=== PATIENT | female | born 1960 | race American Indian/Alaskan Native ===

== ENCOUNTER 2017-02-02 00:38 | Emergency (ER) | payer BC, OTHER ==
[2017-02-02 00:47] VITALS: BP 130/66
[2017-02-02] MEDS ORDERED: Cephalexin 500 MG Cap PO ONE ×2 (01:01→01:06)
[2017-02-02] MEDS ORDERED: Acetaminophen/HYDROcodone 325-10 MG Tab PO ONE ×2 (01:02→01:06)
[2017-02-02] MEDS ORDERED: Acetaminophen/HYDROcodone 325-10 MG Tab ONE (01:06)
[2017-02-02] MEDS ORDERED: Cephalexin 500 MG Cap ONE (01:06)
--- NOTE | 2017-02-02 01:25 | EDM.PDOC ---
ED HPI GENERAL MEDICAL PROBLEM - General Chief Complaint: ENT Problem Stated Complaint: TOOTHACHE Time Seen by Provider: 02/02/17 00:50 - History of Present Illness INITIAL COMMENTS - FREE TEXT/NARRATIVE: c/o left upper molar pain that started after eating tonight, has had similar episodes over past month but have been relieved with tylenol or ibuprofen, has taken both tonight and pain still present, Feel anxious since pain made her cry it hurt so bad. Also chest tightness that started after crying. Feels tight and burning. Last saw dentist one month ago for cleaning. Left Upper Gums Pain Score (Numeric/FACES): 9 - Related Data Allergies Allergy/AdvReac Type Severity Reaction Status Date / Time No Known Allergies Allergy Verified 02/02/17 00:46 Home Meds: Home Meds . [No Known Home Meds] 02/02/17 [History] Past Medical History - Past Health History Medical/Surgical History: Denies Medical/Surgical History Social & Family History - Tobacco Use Smoking Status *Q: Never Smoker Second Hand Smoke Exposure: No - Recreational Drug Use Recreational Drug Use: No ED ROS ENT - Review of Systems Review Of Systems: See Below Constitutional: Denies: Fever HEENT: Reports: Dental Pain Respiratory: Reports: No Symptoms Cardiovascular: Reports: Chest Pain. Denies: Blood Pressure Problem, Lightheadedness, Orthopnea, Palpitations Endocrine: Reports: No Symptoms GI/Abdominal: Reports: No Symptoms : Reports: No Symptoms Musculoskeletal: Reports: No Symptoms Skin: Reports: No Symptoms Neurological: Reports: No Symptoms Psychiatric: Reports: Anxiety ED EXAM, ENT - Physical Exam Exam: See Below Exam Limited By: No Limitations General Appearance: Alert, Anxious, Moderate Distress (holding left upper cheek over 1st molar) Eye Exam: Bilateral Eye: EOMI Ears: Normal External Exam, Normal TMs Nose: Normal Inspection Mouth/Throat: Normal Gums, Other (multiple capped teeth. Left 1st molar, Silver cap. no gross swelling. tender lateral gum. ) Head: Atraumatic, Normocephalic Neck: Lymphadenopathy (L) Respiratory/Chest: No Respiratory Distress, Lungs Clear, Normal Breath Sounds Cardiovascular: Normal Peripheral Pulses, Regular Rate, Rhythm GI/Abdominal: Soft Extremities: Normal Inspection Psychiatric: Normal Affect, Anxious Skin: Warm, Dry, Intact, Normal Color Course - Vital Signs Last Recorded V/S: Last Vital Signs Temp 97.3 F 02/02/17 00:41 Pulse 66 02/02/17 00:41 Resp 18 02/02/17 00:41 BP 130/66 02/02/17 00:41 Pulse Ox 96 02/02/17 00:41 - Orders/Labs/Meds Meds: Medications Discontinued Medications Generic Name Dose Route Start Last Admin Trade Name Wayne PRN Reason Stop Dose Admin Hydrocodone Bitart/Acetaminophen 1 tab 02/02/17 01:02 02/02/17 01:14 [place] 325-10 Mg PO 02/02/17 01:03 1 tab ONETIME ONE Administration Hydrocodone Bitart/Acetaminophen Confirm 02/02/17 01:06 02/02/17 01:09 [place] 325-10 Mg Administered 02/02/17 01:07 Not Given Dose 1 tab .ROUTE .STK-MED ONE Cephalexin 500 mg 02/02/17 01:01 02/02/17 01:12 Keflex PO 02/02/17 01:02 500 mg ONETIME ONE Administration Cephalexin Confirm 02/02/17 01:06 02/02/17 01:09 Keflex Administered 02/02/17 01:07 Not Given Dose 500 mg .ROUTE .STK-MED ONE - Re-Assessments/Exams Free Text/Narrative Re-Assessment/Exam: 02/02/17 01:28 Declines any further evaluation of chest tightness, stating pain just from stress and crying. Departure - Departure Time of Disposition: 01:19 Disposition: Home, Self-Care 01 Condition: good Clinical Impression: Pain, dental - Discharge Information Forms: ED Department Discharge Additional Instructions: keflex 500mg one every 6 hours for one week hydrocodone 10/325 one every 6 hours as needed for sever pain telenol 650mg alternating with ibuprofen 600-800mg every 6 hours as needed for mild to moderate discomfort follow with dentist on Saturday avoid extreme temperature foods, and liquids. chew on opposite side.
== END 2017-02-02 01:26 | disposition home or self-care (01) ==
LOC: DL.ED 00:38
DX: K08.89 Other specified disorders of teeth and supporting structures (principal)
CPT/HCPCS: 99282; A9270

== ENCOUNTER 2022-03-03 07:31 | Emergency (ER) | payer BC, OTHER ==
[2022-03-03 07:51] VITALS: BP 129/92; PULSE 84
[2022-03-03] MEDS ORDERED: Sodium Chloride 0.9% 10 ML Syringe FLUSH PRN (08:07)
[2022-03-03] MEDS ORDERED: Ondansetron 4 MG/2 ML SDV IVPUSH ONE (08:09)
[2022-03-03] MEDS ORDERED: Sodium Chloride 0.9% 1,000 ML IV ONE (08:09)
[2022-03-03 08:54] LABS: CORONAVIRUS COVID-19 NAA NEGATIVE (NEGATIVE)
[2022-03-03 09:40] LABS: ANION GAP 10.6 mEq/L (7-13)
== END 2022-03-03 10:25 | disposition home or self-care (01) ==
LOC: DL.ED 07:31
DX: R42 Dizziness and giddiness (principal); R94.5 Abnormal results of liver function studies; F17.210 Nicotine dependence, cigarettes, uncomplicated; E66.9 Obesity, unspecified; Z68.41 Body mass index [BMI] 40.0-44.9, adult; Z20.822 Contact with and (suspected) exposure to COVID-19
CPT/HCPCS: 0240U; 36415; 70450; 80053; 83605; 83735; 85025; 85610; 86140; 96361; 96374; 96375; 99284-25; J2405; J3360; J3490; J7030

== ENCOUNTER 2022-05-04 05:29 | Day surgery (SDC) | payer BC, OTHER ==
[~2022-05-04 05:29] MED LIST: Sodium Chloride 0.9% 10 ML Syringe FLUSH SCH
[2022-05-04] MEDS ORDERED: fentaNYL 100 MCG/2 ML SDV IV ONE ×3 (05:30→06:34)
[2022-05-04] MEDS ORDERED: Midazolam 1 MG/ML 2 ML SDV IV ONE ×6 (05:30→06:48)
[2022-05-04] MEDS ORDERED: Dextrose 5%-0.45% NaCl 1,000 ML IV SCH (06:00)
[2022-05-04] MEDS ORDERED: Sodium Chloride 0.9% 10 ML Syringe FLUSH PRN (06:00)
[2022-05-04] MEDS ORDERED: Midazolam 1 MG/ML 2 ML SDV ONE (06:14)
[2022-05-04] MEDS ORDERED: fentaNYL 100 MCG/2 ML SDV ONE (06:14)
[2022-05-04 09:34] VITALS: BP 132/76; PULSE 66
== END 2022-05-04 09:00 | disposition home or self-care (01) ==
LOC: DL.ENDO 05:29
PROVIDERS: ATTEND Internal Medicine Gastroenterology
DX: K62.5 Hemorrhage of anus and rectum (principal); K64.8 Other hemorrhoids; F17.210 Nicotine dependence, cigarettes, uncomplicated; E66.09 Other obesity due to excess calories; Z01.812 Encounter for preprocedural laboratory examination; Z20.822 Contact with and (suspected) exposure to COVID-19; Z68.41 Body mass index [BMI] 40.0-44.9, adult
CPT/HCPCS: 45378; 87635; J2250; J3010; J7042; U0002

== ENCOUNTER 2024-09-01 05:27 | Day surgery (SDC) | payer BC, OTHER ==
[2024-09-01] MEDS: Dextrose 5%-0.45% NaCl 1,000 ML IV SCH (05:48)
[2024-09-01] MEDS ORDERED: fentaNYL 100 MCG/2 ML SDV ONE (06:06)
[2024-09-01] MEDS ORDERED: fentaNYL 100 MCG/2 ML SDV IV ONE (06:06)
[2024-09-01] MEDS ORDERED: Midazolam 1 MG/ML 2 ML SDV ONE (06:06)
[2024-09-01] MEDS ORDERED: Midazolam 1 MG/ML 2 ML SDV IV ONE (06:06)
[2024-09-01] MEDS: fentaNYL 100 MCG/2 ML SDV IV ONE ×3 (06:23→06:36)
[2024-09-01] MEDS: Midazolam 1 MG/ML 2 ML SDV IV ONE ×6 (06:24→06:33)
[2024-09-01 07:43] VITALS: BP 118/65; PULSE 56
== END 2024-09-01 07:58 | disposition home or self-care (01) ==
LOC: DL.ENDO 05:27
PROVIDERS: ATTEND Internal Medicine Gastroenterology
DX: K51.211 Ulcerative (chronic) proctitis with rectal bleeding (principal); K64.8 Other hemorrhoids
CPT/HCPCS: 45380; J2250; J3010; J7799